=== PATIENT | male | born 1985 | race Caucasian/White ===

== ENCOUNTER 2019-11-30 09:41 | Emergency (ER) | payer SELFPAY ==
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
[2019-11-30 10:21] VITALS: BP 130/82
== END 2019-11-30 10:15 | disposition home or self-care (01) ==
LOC: ER 09:41
DX: S02.5XXA Fracture of tooth (traumatic), initial encounter for closed fracture (principal); Y04.8XXA Assault by other bodily force, initial encounter
CPT/HCPCS: 99283

== ENCOUNTER 2020-09-25 13:33 | Emergency (ER) | payer SELFPAY ==
--- NOTE | 2020-09-25 13:57 | ER Document Report ---
ED Medical Screen (RME) - General Chief Complaint: Dizziness Stated Complaint: WEAKNESS/DIZZY Time Seen by Provider: 09/25/20 13:49 TRAVEL OUTSIDE OF THE [place] IN LAST 30 DAYS: No - HPI Notes: 09/25/20 13:55 35-year-old male presents to ED for evaluation of increasing dizziness. Reports a history of sinus related problems. States that he has not had any Covid based symptoms and that this is baseline for him. States that he has episodic dizziness that may last seconds to minutes. Notes that he feels like everything is spinning. Denies head injury or loss of consciousness. Patient states he does not drink a large amount of fluids but instead drinks soda on a regular basis. Denies a history of cardiac problems. Does report that he does have a family history of diabetes and is urinating more frequently. - Related Data Allergies/Adverse Reactions: No Known Allergies Allergy (Verified 09/25/20 13:46) Home Medications: denies Past Medical History - Social History Chew tobacco use (# tins/day): No Frequency of alcohol use: None Drug Abuse: Marijuana Past Surgical History: Reports: Hx Appendectomy - Immunizations Hx Diphtheria, Pertussis, Tetanus Vaccination: Yes Physical Exam - Vital signs Vitals: Temp Pulse Resp BP Pulse Ox 98.2 F 86 16 143/69 H 100 09/25/20 13:38 09/25/20 13:38 09/25/20 13:38 09/25/20 13:38 09/25/20 13:38 General: No acute distress. Alert and oriented x3. Sitting comfortably in a stretcher. Skin: No jaundice, pallor, petechiae, or rashes. Warm and dry. HEENT: Normocephalic, atraumatic. Pupils are equal round reactive to light and accommodation. Extraocular movements are intact. No nystagmus. TMs without erythema or bulging. Canals are clear. Nares patent without any discharge. Teeth in good condition. Pharynx without erythema, edema, or exudates. Mucous membranes moist. No tonsillar enlargement. Uvula is midline. Airway is patent. Neck: Supple with no lymphadenopathy. Full range of motion. Heart: Regular rate and rhythm. S1,S2. No murmurs, rubs, or gallops. Lungs: Clear to auscultation bilaterally. No wheezes, rhonchi, rales. Equal chest expansion. No retractions. Neuro: GCS 15. Moving all extremities without discomfort. Psych: Mood and affect appropriate. Course - Vital Signs Vital signs: Temp Pulse Resp BP Pulse Ox 98.2 F 86 16 143/69 H 100 09/25/20 13:38 09/25/20 13:38 09/25/20 13:38 09/25/20 13:38 09/25/20 13:38
--- NOTE | 2020-09-25 14:17 | RADIOLOGY REPORT (SQ) ---
EXAM DESCRIPTION: CHEST SINGLE VIEW IMAGES COMPLETED DATE/TIME: 09/25/2020 2:09 pm REASON FOR STUDY: chest pain COMPARISON: None. EXAM PARAMETERS: NUMBER OF VIEWS: One view. TECHNIQUE: Single frontal radiographic view of the chest acquired. RADIATION DOSE: NA LIMITATIONS: None. FINDINGS: LUNGS AND PLEURA: No opacities, masses or pneumothorax. No pleural effusion. MEDIASTINUM AND HILAR STRUCTURES: No masses. Contour normal. HEART AND VASCULAR STRUCTURES: Heart normal in size. Normal vasculature. BONES: No acute findings. HARDWARE: None in the chest. OTHER: No other significant finding. IMPRESSION: NO ACUTE RADIOGRAPHIC FINDING IN THE CHEST. TECHNICAL DOCUMENTATION: JOB ID: [id number] 2010 [employer]- All Rights Reserved Reading location - IP/workstation name: [email or web address]
[2020-09-25 14:40] LABS: ABSOLUTE BASOPHILS # (AUTO) 0.1 10^3/uL (0.0-0.2); ABSOLUTE EOSINOPHILS # (AUTO) 0.1 10^3/uL (0.0-0.6); ABSOLUTE LYMPHOCYTES (AUTO) 1.6 10^3/uL (0.5-4.7); ABSOLUTE MONOCYTES (AUTO) 0.5 10^3/uL (0.1-1.4); ABSOLUTE NEUT (AUTO) 5.6 10^3/uL (1.7-8.2); BASOPHILS % (AUTO) 0.7 % (0-2); EOSINOPHILS % (AUTO) 1.2 % (0-6); HEMATOCRIT 43.4 % (37.9-51.0); LYMPHOCYTES % (AUTO) 20.7 % (13-45); MEAN CORPUSCULAR HGB CONC 34.7 g/dL (32.0-36.0); MEAN CORPUSCULAR VOLUME 86 fl (80-97); MONOCYTES % (AUTO) 6.5 % (3-13); PLATELET COUNT 336 10^3/uL (150-450); RED BLOOD COUNT 5.02 10^6/uL (4.35-5.55); RED CELL DISTRIBUTION WIDTH 13.1 % (11.5-14.0); SEGMENTED NEUTROPHILS % (AUTO) 70.9 % (42-78); TOTAL CELLS COUNTED % (AUTO) 100 %
[2020-09-25 15:12] LABS: ALBUMIN 4.5 g/dL (3.5-5.0); ALKALINE PHOSPHATASE 61 U/L (38-126); ANION GAP 8 (5-19); ASPARTATE AMINO TRANSFERASE 20 U/L (17-59); BILIRUBIN,DIRECT 0.2 mg/dL (0.0-0.4); BILIRUBIN,TOTAL 0.3 mg/dL (0.2-1.3); BLOOD UREA NITROGEN 11 mg/dL (7-20); CALCIUM 9.3 mg/dL (8.4-10.2); CARBON DIOXIDE 28 mmol/L (22-30); CHLORIDE 101 mmol/L (98-107); CREATINE KINASE 53 U/L (55-170); GLUCOSE 104 mg/dL (75-110); POTASSIUM 4.2 mmol/L (3.6-5.0); TOTAL PROTEIN 7.6 g/dL (6.3-8.2)
[2020-09-25 15:25] LABS: CREATINE KINASE MB 0.49 ng/mL (<4.55)
[2020-09-25 15:27] LABS: TROPONIN I < 0.012 ng/mL
--- NOTE | 2020-09-25 15:27 | ER Document Report ---
ED General - General Chief Complaint: Dizziness Stated Complaint: WEAKNESS/DIZZY Time Seen by Provider: 09/25/20 13:49 TRAVEL OUTSIDE OF THE [place] IN LAST 30 DAYS: No - HPI Notes: Chief complaint: Dizziness History of present illness: Generally healthy 35-year-old male taking no prescription medications with no known allergies presenting for evaluation of 3 to 5-day history intermittent positional vertigo. Patient says that when he changes positions suddenly he has sensation of the entire room spinning which lasts for a few seconds at a time. He denies any headache, fever, nasal congestion, nausea or vomiting. He denies any focal weakness or numbness although he says occasionally fingers in both hands tingle. He denies any acute visual changes or any problems with swallowing or speaking. Patient denies any history of head injury. Patient is a former smoker. Denies use of alcohol. Says he occasionally smokes marijuana and is uses as recently as yesterday. He denies any other drug abuse. - Related Data Allergies/Adverse Reactions: No Known Allergies Allergy (Verified 09/25/20 13:46) Home Medications: denies Past Medical History - General Information source: Patient, REPLACED BY [facility] Records - Social History Smoking Status: Former Smoker Chew tobacco use (# tins/day): No Frequency of alcohol use: None Drug Abuse: Marijuana Occupation: Grocery store clerk cashier Lives with: Family Family History: Reviewed & Not Pertinent Patient has homicidal ideation: No - Medical History Medical History: Negative Past Surgical History: Reports: Hx Appendectomy - Immunizations Hx Diphtheria, Pertussis, Tetanus Vaccination: Yes Review of Systems - Review of Systems Notes: Constitutional: Negative for fever. HENT: Negative for sore throat. Eyes: Negative for visual changes. Cardiovascular: Negative for chest pain. Respiratory: Negative for shortness of breath. Gastrointestinal: Negative for abdominal pain, vomiting or diarrhea. Genitourinary: Negative for dysuria. Musculoskeletal: Negative for back pain. Skin: Negative for rash. Neurological: As per HPI. 10 point ROS negative except as marked above and in HPI. Physical Exam - Vital signs Vitals: Temp Pulse Resp BP Pulse Ox 98.2 F 86 16 143/69 H 100 09/25/20 13:38 09/25/20 13:38 09/25/20 13:38 09/25/20 13:38 09/25/20 13:38 - Notes Notes: GENERAL: Well-developed well-nourished male approximately stated age appearing in no acute distress. SKIN: Good turgor no rashes. HEAD: Normocephalic atraumatic. EYES: PERRLA. EOMI. Conjunctivae and sclerae clear. EARS: CANALS AND TMS CLEAR. NOSE: CLEAR. MOUTH: Moist mucosa. Good dentition. No stridor or edema. No drooling. NECK: Supple. No masses or thyromegaly. No adenopathy. Carotids 2+ without bruits. No JVD. BACK: Symmetrical without tenderness. CHEST: Respirations unlabored. Breath sounds clear and symmetrical. HEART: Regular rhythm. No murmur gallop or rub. ABDOMEN: Soft nontender without masses, organomegaly or rebound. Bowel sounds normally active. No bruits. GENITALIA: Deferred. EXTREMITIES: No edema. No calf tenderness. Cap refill less than 1.5 seconds. Dorsalis pedis and posterior tibial pulses 3+ and symmetrical. NEUROLOGICAL: GCS 15. Alert and oriented x3. Normal gait. Fluent speech. Cranial nerves II through XII intact. Sensorimotor and cerebellar normal. N ormal tone. PSYCHIATRIC: Appropriate affect. Course - Re-evaluation Re-evalutation: 09/25/20 18:26 Clinically this looks like a vestibular neuronitis. Neurologic exam was remarkable for some mild nystagmus on lateral gaze. Patient is however a very terrible historian. I obtained a noncontrast head CT that was negative. All of his lab evaluation here was unremarkable. I think he is very stable for outpatient treatment with some meclizine and follow-up with PMD. Findings, clinical impression and plan of treatment have been discussed with patient/family. Understanding of current findings and recommendations has been acknowledged by them and there is agreement regarding disposition and follow-up. - Vital Signs Vital signs: Temp Pulse Resp BP Pulse Ox 98.2 F 86 22 H 132/87 H 98 09/25/20 13:38 09/25/20 14:25 09/25/20 17:16 09/25/20 17:16 09/25/20 17:16 - Laboratory Results Result Diagrams: 09/25/20 14:10 09/25/20 14:10 Laboratory Results Interpreted: 09/25/20 14:10 Creatine Kinase 53 L Critical Laboratory Results Reviewed: No Critical Results - Radiology Results Critical Radiology Results Reviewed: No Critical Results - EKG Interpretation by Me Additional EKG results interpreted by me: 09/25/20 15:26 Twelve-lead EKG reviewed by me contemporaneously: Indication for study: Dizziness Rhythm: Normal sinus Rate: 79 Intervals: Normal intervals QRS axis: +[address]/T wave changes: None Comparison with prior tracing: None Interpretation: Normal sinus rhythm Discharge - Discharge Clinical Impression: Vestibular neuronitis, unspecified ear Qualifiers: Laterality: unspecified laterality Qualified Code(s): H81.20 - Vestibular neuronitis, unspecified ear Condition: Stable Disposition: HOME, SELF-CARE Instructions: Meclizine ([facility]), Vertigo ([facility]) Prescriptions: Meclizine HCl 25 mg PO TID #30 tablet Forms: Return to Work
[2020-09-25 15:39] LABS: APPEARANCE,URINE CLEAR; BILIRUBIN,URINE NEGATIVE (NEGATIVE); COLOR,URINE STRAW; GLUCOSE, URINE NEGATIVE (NEGATIVE); KETONES,URINE NEGATIVE (NEGATIVE); LEUKOCYTE ESTERASE,URINE NEGATIVE (NEGATIVE); NITRITE,URINE NEGATIVE (NEGATIVE); PROTEIN,URINE NEGATIVE (NEGATIVE); URINE SPECIFIC GRAVITY 1.005; UROBILINOGEN,URINE NEGATIVE mg/dL (<2.0)
[2020-09-25 15:58] LABS: URINE AMPHETAMINES SCREEN NEGATIVE; URINE BARBITURATES SCREEN NEGATIVE; URINE BENZODIAZEPINES SCREEN NEGATIVE; URINE COCAINE SCREEN NEGATIVE; URINE METHADONE SCREEN NEGATIVE; URINE PHENCYCLIDINE SCREEN NEGATIVE
[2020-09-25 16:00] LABS: URINE MARIJUANA (THC) SCREEN UNCONFIRMED POSITIVE
--- NOTE | 2020-09-25 16:09 | RADIOLOGY REPORT (SQ) ---
EXAM DESCRIPTION: CT HEAD WITHOUT IMAGES COMPLETED DATE/TIME: 09/25/2020 3:48 pm REASON FOR STUDY: vertigo COMPARISON: None. TECHNIQUE: Axial images acquired through the brain without intravenous contrast. Images reviewed wi th bone, brain and subdural windows. Additional sagittal and coronal reconstructions were generated. Images stored on PACS. All CT scanners at this facility use dose modulation, iterative reconstruction, and/or weight based d osing when appropriate to reduce radiation dose to as low as reasonably achievable (ALARA). [facility]: Dose Right [facility]: CareDose [facility]: Dose Right [facility]: Teradose 4D [facility]: Smart Valderm RADIATION DOSE: CT Rad equipment meets quality standard of care and radiation dose reduction techniq ues were employed. CTDIvol: 53.2 mGy. DLP: 964 mGy-cm. mGy. LIMITATIONS: None. FINDINGS: VENTRICLES: Normal size and contour. CEREBRUM: No masses. No hemorrhage. No midline shift. No evidence for acute infarction. Normal gra y/white matter differentiation. No areas of low density in the white matter. CEREBELLUM: No masses. No hemorrhage. No alteration of density. No evidence for acute infarction. EXTRAAXIAL SPACES: No fluid collections. No masses. ORBITS AND GLOBE: No intra- or extraconal masses. Normal contour of globe without masses. CALVARIUM: No fracture. PARANASAL SINUSES: No fluid levels. SOFT TISSUES: No mass or hematoma. OTHER: No other significant finding. IMPRESSION: NORMAL BRAIN CT WITHOUT CONTRAST. EVIDENCE OF ACUTE STROKE: NO. COMMENT: Quality ID # [id number]: Final reports with documentation of one or more dose reduction techniques (e.g., Automated exposure control, adjustment of the mA and/or kV according to patient size, use of iterative reconstruction technique) TECHNICAL DOCUMENTATION: JOB ID: [id number] [employer]- All Rights Reserved Reading location - IP/workstation name: [email or web address]
--- NOTE | 2020-09-25 17:42 | EKG REPORT ---
SEVERITY:- NORMAL ECG - SINUS RHYTHM : Confirmed by: James House MD 25-Sep-2020 17:41:45
[2020-09-25 18:42] VITALS: BP 135/78
== END 2020-09-25 18:43 | disposition home or self-care (01) ==
LOC: ER 13:33
DX: H81.20 Vestibular neuronitis, unspecified ear (principal); R53.1 Weakness
CPT/HCPCS: 36415; 70450; 71045; 80053; 80307; 81001; 82550; 82553; 84443; 84484; 85025; 93005; 93010; 99285